=== PATIENT | female | born 1955 | race Caucasian/White ===

== ENCOUNTER 2019-10-15 18:03 | Emergency (ER) | payer OTHER ==
[2019-10-15] MEDS ORDERED: METHYLPREDNISOLONE INJ 125 MG/2 ML SDV IV ONE (18:08)
[2019-10-15] MEDS ORDERED: EPINEPHRINE INJ/PF 1 MG/1 ML AMPULE IM ONE (18:08)
[2019-10-15] MEDS ORDERED: DIPHENHYDRAMINE HCL 50 MG/ML VIAL IV ONE ×2 (18:08→19:37)
--- NOTE | 2019-10-15 18:09 | ER Document Report ---
ED Medical Screen (RME) - General Chief Complaint: Rash Stated Complaint: RASH/POSSIBLE ALLERGIC REACTION Time Seen by Provider: 10/15/19 18:07 Mode of Arrival: Ambulatory Information source: Patient Notes: 63-year-old female presented to ED for allergic reaction to cashews. She is red hives all over with beginning of difficulty to swallow swelling to her throat and starting to feel a little short of breath. She is alert and oriented at this time. Will order epinephrine Solu-Medrol and Benadryl and she will go back to her room immediately. I have greeted and performed a rapid initial assessment of this patient. A comprehensive ED assessment and evaluation of the patient, analysis of test results and completion of medical decision making process will be conducted by an additional ED providers.
--- NOTE | 2019-10-15 18:39 | ER Document Report ---
ED General - General Chief Complaint: Rash Stated Complaint: RASH/POSSIBLE ALLERGIC REACTION Time Seen by Provider: 10/15/19 18:07 Mode of Arrival: Ambulatory - HPI Notes: Patient is a 63-year-old female who presents to the emergency department for evaluation of an allergic reaction. She just got into town from [place]. She was eating some cashews, noticed swelling of her tongue and lips. She then started feeling swelling of the back of her throat, developed hives. She has never had allergic reactions to foods in the past. She denies any pain. She states her breathing is normal. She is having no difficulty swallowing. - Related Data Allergies/Adverse Reactions: cashew nut Allergy (Verified 10/15/19 21:09) Home Medications: Zonegran, Lamictal Past Medical History - General Information source: Patient - Social History Smoking Status: Unknown if Ever Smoked Family History: DM, Hypertension - GI was she told me we are he had a lot of missing spine dose: 3 will have backups ready if we need it Neurological Medical History: Reports: Hx Seizures Review of Systems - Review of Systems EENT: See HPI Skin: See HPI -: Yes All other systems reviewed and negative Physical Exam - Vital signs Vitals: Temp 98.4 F 10/15/19 18:03 Course - Re-evaluation Re-evalutation: 10/15/19 19:38 Patient presents to the emergency department for evaluation. She had multiple system involvement, officially anaphylaxis. Patient was administered epinephrine, Solu-Medrol, Benadryl IV. An hour later, the patient continues to have significant erythema, very mild swelling of her upper lip, which has not worsened. She is given further Benadryl IV, and Pepcid 20 mg is added as well. She is stable, we will continue to monitor. 10/15/19 21:09 Patient patient continued to have erythema and hives, she was given further medication. She had steady improvement. The patient is getting slightly agitated, wants to leave. I explained her that I generally a observe anaphylaxis patient for 4 hours, watching for signs of rebound. Patient is amenable to staying at this point. She has been stable. - Vital Signs Vital signs: Temp Pulse Resp BP Pulse Ox 98.4 F 10 L 145/90 H 98 10/15/19 18:03 10/15/19 20:01 10/15/19 20:01 10/15/19 20:01 Discharge - Discharge Clinical Impression: Anaphylactic reaction due to food Condition: Stable Disposition: HOME, SELF-CARE Instructions: Acid-Suppressing Medication ([facility]), Acute Allergic Reaction ([facility]), Antihistamines ([facility]), Use of Diphenhydramine, Epinephrine, Steroid Medication Injection Additional Instructions: You presented to the ER for an anaphylactic reaction. You received IV Solu- Medrol, Pepcid, Benadryl. You received IM epinephrine. Your symptoms have improved, and you have been observed for 4 hours. You will be given steroids to take at home, starting tomorrow. Avoid cashews. Take Benadryl or Claritin as needed for itching. Please keep an EpiPen with you at all times. If you begin having swelling of your tongue or lips, difficulty breathing, speaking, swallowing, ever have to use your EpiPen, or develop any other new symptoms, please return immediately to the ER for further evaluation. Prescriptions: Prednisone [Deltasone 20 mg Tablet] See Protocol PO DAILY 5 Days #20 tablet Epinephrine 0.3 mg IM ONCE PRN #1 auto.injct PRN Reason:
[2019-10-15] MEDS ORDERED: NORMAL SALINE 1000 ML 1,000 ML IV ONE (19:37)
[2019-10-15] MEDS ORDERED: FAMOTIDINE INJ/PF 20 MG/2 ML SDV IV ONE (19:37)
[2019-10-15 22:19] VITALS: BP 158/92
== END 2019-10-15 22:18 | disposition home or self-care (01) ==
LOC: ER 18:03
DX: T78.05XA Anaphylactic reaction due to tree nuts and seeds, initial encounter (principal); R56.9 Unspecified convulsions; Z79.899 Other long term (current) drug therapy
CPT/HCPCS: 96376; 99284; 96372; 96361; 96374; 96375; J1200; J0171; J2930; J7030; S0028